=== PATIENT | female | born 2000 | race Caucasian/White ===

== ENCOUNTER 2024-05-20 12:38 | Emergency (ER) | payer OTHER, SELFPAY ==
[2024-05-20 12:43] VITALS: BP 150/94; PULSE 94; RESP 19; TEMP 36.6; O2SAT 99; BMI 65.1
--- NOTE | 2024-05-20 12:44 | ED_ITS ---
HPI - General Adult General Chief complaint: General Medical Stated complaint: Confused Not Eating Numbness in Mouth Related Data Allergies Allergy/AdvReac Type Severity Reaction Status Date / Time infliximab [Remicade] Allergy Unknown Unknown Verified 05/20/24 12:46 penicillin V Allergy Unknown Unknown Verified 05/20/24 12:46 [facility] Social History Social History Advance Directives: No Advance Directives Information Provided: Yes Do you have a plan to hurt others: No Plan Physical Exam ED Vital Signs: Vital Signs - 24 hr 05/20/24 12:43 05/20/24 16:55 Temperature 98 F 98 F Pulse Rate 94 82 Respiratory Rate 19 18 Blood Pressure 150/94 H 150/93 H Pulse Oximetry 99 98 Oxygen Delivery Method Room Air Room Air BMI result Body Mass Index 65.1 Course Course Course Narrative: This is a Rapid Medical Examination (RME) performed by Mela Truong PA-C in triage. Full HPI, ROS, assessment and treatment plan per primary provider in the Main ED. 05/20/24 1259 DANIELA Olivera Hx: 23 yo female here for eval of not feeling myself x6 days. reports syncopal episode 6 days ago. reports passing out for 2 hours. was evaluated at [facility] ED with reported negative work up. admits to numbness all over , sweating. PE/vitals: well appearing, exam nonfocal Plan: labs, ekg [facility] records requested Medical Decision Making Lab Data 05/20/24 13:09 05/20/24 13:09 Labs: Lab Results 05/20/24 Range/Units 13:09 WBC 8.9 (4.8-10.8) X10*3/uL RBC 4.49 (4.20-5.50) X10*6/uL Hgb 12.0 (12.0-16.0) g/dl Hct 36.1 L (37.0-47.0) % MCV 80.4 (80.0-98.0) fL MCH 26.7 L (27.0-33.0) pg MCHC 33.2 (31.0-35.0) g/dl RDW 13.9 (11.0-16.0) % Plt Count 325 (160-400) X10*3/uL MPV 11.9 (9.4-12.3) fL Immature Gran % (Auto) 0.2 (0.0-0.4) % Neut % (Auto) 73.5 H (45-73) % Lymph % (Auto) 15.9 L (20-40) % [place] % (Auto) 8.5 (2-11) % Eos % (Auto) 1.6 (0-4) % Baso % (Auto) 0.3 (0-2) % Lymph # (Auto) 1.4 (1.2-4.9) X10*3/uL [place] # (Auto) 0.8 (0.1-1.2) X10*3/uL Eos # (Auto) 0.1 (0.0-0.4) X10*3/uL Baso # (Auto) 0.0 (0.0-0.2) X10*3/uL Abs Immat Gran (auto) 0.02 (0.00-0.03) X10*3/uL Absolute Neuts (auto) 6.6 (2.0-8.3) x10*3/uL Absolute Nucleated RBC 0.000 (0.0-0.012) X10*3/uL Nucleated RBC % (auto) 0.0 (0.0-0.2) /100WBC Sodium 138 (135-145) mmol/L Potassium 4.0 (3.3-5.1) mmol/L Chloride 112 H (96-108) mmol/L Carbon Dioxide 20 L (22-29) mmol/L Anion Gap 10 L (12-20) BUN 8 L (9-16) mg/dL Creatinine 0.66 (0.5-1.4) mg/dL Estim Creat Clear Calc 198.1 Estimated GFR > 60 Random Glucose 105 (60-115) mg/dL Calcium 9.2 (8.4-10.2) mg/dL Magnesium 2.1 (1.6-2.6) mg/dL Total Bilirubin 0.3 (0.0-1.0) mg/dL AST 29 (5-31) U/L ALT 26 (0-31) U/L Alkaline Phosphatase 114 (39-117) U/L Total Protein 7.9 (6.5-8.0) g/dL Albumin 3.8 (3.5-5.0) g/dL TSH 0.47 (0.32-4.0) uIU/mL Beta HCG, Quant < 2 mIU/mL Discharge Plan Discharge Clinical Impression: Paresthesias Patient Disposition: Left W/O Completing Treatment Discharge Date/Time: 05/20/24 22:48
--- NOTE | 2024-05-20 12:46 | ECG_ITS ---
Test Reason : altered mental Blood Pressure : */* mmHG Vent. Rate : 88 BPM Atrial Rate : 88 BPM P-R Int : 140 ms QRS Dur : 84 ms QT Int : 364 ms P-R-T Axes : 31 0 20 degrees QTcB Int : 440 ms Normal sinus rhythm Possible Anterior infarct , age undetermined Abnormal ECG No previous ECGs available Referred By: Zara Truong Electronically Signed By: KAREL POON MD
[2024-05-20 13:15] LABS: Basophils Percent Auto 0.3 % (0-2); Eosinophils Absolute Auto 0.1 X10*3/uL (0.0-0.4); Eosinophils Percent Auto 1.6 % (0-4); Hematocrit 36.1 % (37.0-47.0); Imm Gran Abs Auto 0.02 X10*3/uL (0.00-0.03); Imm Gran Pct Auto 0.2 % (0.0-0.4); Lymphocytes Absolute Auto 1.4 X10*3/uL (1.2-4.9); Lymphocytes Percent Auto 15.9 % (20-40); MANUAL DIFF FLAG NO; Mean Corpuscular HGB Conc 33.2 g/dl (31.0-35.0); Mean Corpuscular Hemoglobin 26.7 pg (27.0-33.0); Mean Corpuscular Volume 80.4 fL (80.0-98.0); Mean Platelet Volume 11.9 fL (9.4-12.3); Monocytes Absolute Auto 0.8 X10*3/uL (0.1-1.2); Monocytes Percent Auto 8.5 % (2-11); Neutrophils Absolute Auto 6.6 x10*3/uL (2.0-8.3); Neutrophils Percent Auto 73.5 % (45-73); Platelet Count 325 X10*3/uL (160-400); Red Blood Count 4.49 X10*6/uL (4.20-5.50); Red Cell Distribution Width 13.9 % (11.0-16.0); White Blood Count 8.9 X10*3/uL (4.8-10.8)
[2024-05-20 13:35] LABS: Alanine Aminotransferase 26 U/L (0-31); Albumin Level 3.8 g/dL (3.5-5.0); Alkaline Phosphatase 114 U/L (39-117); Anion Gap 10 (12-20); Aspartate Amino Transferase 29 U/L (5-31); Bilirubin Total 0.3 mg/dL (0.0-1.0); Blood Urea Nitrogen 8 mg/dL (9-16); Calcium 9.2 mg/dL (8.4-10.2); Carbon Dioxide 20 mmol/L (22-29); Chloride 112 mmol/L (96-108); Creatinine Clr Calc Pharmacy 198.1; Estimated Glomerular Filt Rate > 60; Glucose Random 105 mg/dL (60-115); Magnesium 2.1 mg/dL (1.6-2.6); Sodium 138 mmol/L (135-145); Total Protein 7.9 g/dL (6.5-8.0)
[2024-05-20 13:49] LABS: HCG Quantitative < 2 mIU/mL; TSH reflex Free T4 0.47 uIU/mL (0.32-4.0)
--- OUTSIDE RECORDS SUMMARY | 2024-05-20 15:10 | XMS_ITS | Clinical Summary ---
Author Organization [facility] Address [address] [place] [address] Phone Care Team Providers Care Retail Pricing Coordinator Name Role Phone Physician, No Pcp Primary Care Provider Unavaila ble Allergies Active Allergy Reactions Criticality Noted Date Comments Infliximab High 01/23/2020 Penicillin Rash High 01/23/2020 Encounters Date Type Department Care Team Description 03/30/2024 5:19 PM EST - 03/30/2024 11:02 PM EST Emergency [facility] [address] [place] [id number] Discharge Disposition: Home or Self Care from Last 3 Months Medical History Medical History Date Comments LOLIS (juvenile idiopathic arthritis) (CMS/[facility] V24 , [facility] V28) Social History Tobacco Use Types Packs/Day Years Used Date Smoking Tobacco: Never Assessed Comments Unknown Sex and Gender Information Value Date Recorded Sex Assigned at Female 03/30/2024 10:49 PM EST Legal Sex Female 9:46 AM EST Gender Identity Female 03/30/2024 10:49 PM EST Sexual Orientation Not on file Obstetrics History Last Filed Vital Signs Vital Sign Reading Time Taken Comments Blood Pressure 135/88 03/30/2024 8:35 PM EST Pulse 83 03/30/2024 8:35 PM EST Temperature 37 ??C (98.6 ??F) 03/30/2024 8:35 PM EST Respiratory Rate 18 03/30/2024 5:36 PM EST Oxygen Saturation 98% 03/30/2024 8:35 PM EST Inhaled Oxygen Concentration - - Weight 160 kg (353 lb) 03/30/2024 5:36 PM EST Height 157.5 cm (5' 2 ) 03/30/2024 5:36 PM EST Body Mass Index 64.56 03/30/2024 5:36 PM EST Plan of Treatment Health Maintenance Due Date Last Done Comments Gonorrhea/Chlamydia Screening 2000 Pneumococcal Vaccine: Pediatrics (0 to 5 Years) and At-Risk Patients (6 to 64 Years) (1 of 1 - PPSV23) 2006 05/18/2001, 03/19/2001, 01/15/2001 Meningococcal B Vaccine (1 of 2 - Standard) 2016 Cervical Cancer Screening: Pap Smear 2021 Cholesterol Screening (Lipid Panel) 01/04/2022 Depression Screening 01/04/2022 HIV Screening 01/04/2022 Hepatitis C Screening 01/04/2022 Social Influencers of Health Screening 01/04/2022 COVID-19 Vaccine ( season) 2023 12/27/2022, 12/22/2020, 06/10/2020, Additional history exists DTaP,Tdap,and Td Vaccines (7 - Td or Tdap) 12/27/2032 12/27/2022, 01/08/2013, 01/26/2005, Additional history exists Hepatitis B Vaccines Completed 07/20/2001, 2000, 2000 HIB Vaccines Completed 03/08/2002, 05/07, 03/19/2001, Additional history exists IPV Vaccines Completed 01/26/2005, 05/07, 03/19/2001, Additional history exists MMR Vaccines Completed 01/26/2005, 03/08/2002 Meningococcal ACWY Vaccine Aged Out 01/08/2013 N o longer eligible based on patient's age to complete this topic HPV Vaccines Completed 01/20/2014, 09/07, 01/08/2013 Varicella Vaccines Completed 12/08/2014, 12/28/2001 Influenza Vaccine Completed 12/06/2023, , 12/22/2020, Additional history exists Hepatitis A Vaccines Aged Out No long er eligible based on patient's age to complete this topic RSV Immunization Patients Under 20 months Aged Out No longer eligible based on patient's age to complete this topic Procedures Procedure Name Priority Date/Time Associated Diagnosis Comments CBC WITH AUTO DIFFERENTIAL STAT 03/30/2024 6:53 PM EST BASIC METABOLIC PANEL STAT 03/30/2024 6:53 PM EST CBC AND DIFFERENTIAL STAT 03/30/2024 6:53 PM EST from Last 3 Months Results * (ABNORMAL) CBC auto differential (03/30/2024 6:53 PM EST) [facility] WBC 12.1(H) 4.8 - 10.8 K/mcL LAB HEMETOLOGY METHOD 03/30/2024 7:17 PM [facility] RBC 4.60 3.80 - 4.80 M/mcL LAB HEMETOLOGY METHOD 03/30/2024 7:17 PM [facility] Hemoglobin 12.3 11.5 - 16.0 g/dL LAB HEMETOLOGY METHOD 03/30/2024 7:17 PM [facility] Hematocrit 38.7 35.0 - 47.0 % LAB HEMETOLOGY METHOD 03/30/2024 7:17 PM [facility] MCV 83.6 79.0 - 98.0 FL LAB HEMETOLOGY METHOD 03/30/2024 7:17 PM [facility] MCH 26.6(L) 27.0 - 32.0 pcg LAB HEMETOLOGY METHOD 03/30/2024 7:17 PM [facility] MCHC 31.8(L) 32.0 - 37.0 g/dL LAB HEMETOLOGY METHOD 03/30/2024 7:17 PM [facility] RDW 13.5 11.0 - 15.0 % LAB HEMETOLOGY METHOD 03/30/2024 7:17 PM [facility] Platelets 300 130 - 400 K/mcL LAB HEMETOLOGY METHOD 03/30/2024 7:17 PM [facility] MPV 12.1(H) 7.0 - 11.0 FL LAB HEMETOLOGY METHOD 03/30/2024 7:17 PM [facility] NRBC 0.0 <1.0 % LAB HEMETOLOGY METHOD 03/30/2024 7:17 PM [facility] NRBC Absolute 0.00 <0.10 K/mcL LAB HEMETOLOGY METHOD 03/30/2024 7:17 PM [facility] Neutrophils Relative 77.9 % LAB HEMETOLOGY METHOD 03/30/2024 7:17 PM [facility] Lymphocytes Relative 13.5 % LAB HEMETOLOGY METHOD 03/30/2024 7:17 PM [facility] Monocytes Relative 6.8 % LAB HEMETOLOGY METHOD 03/30/2024 7:17 PM [facility] Eosinophils Relative 1.1 % LAB HEMETOLOGY METHOD 03/30/2024 7:17 PM [facility] Basophils Relative 0.4 % LAB HEMETOLOGY METHOD 03/30/2024 7:17 PM [facility] Immature Granulocytes Relative 0.3 % LAB HEMETOLOGY METHOD 03/30/2024 7:17 PM [facility] Neutrophils Absolute 9.44(H) 1.50 - 7.00 K/mcL LAB HEMETOLOGY METHOD 03/30/2024 7:17 PM [facility] Lymphocytes Absolute 1.63 1.00 - 5.00 K/mcL LAB HEMETOLOGY METHOD 03/30/2024 7:17 PM [facility] Monocytes Absolute 0.82 0.20 - 1.00 K/mcL LAB HEMETOLOGY METHOD 03/30/2024 7:17 PM [facility] Eosinophils Absolute 0.13 0.00 - 0.50 K/mcL LAB HEMETOLOGY METHOD 03/30/2024 7:17 PM [facility] Basophils Absolute 0.05 0.00 - 0.20 K/mcL LAB HEMETOLOGY METHOD 03/30/2024 7:17 PM [facility] Immature Granulocytes Absolute 0.04(H) 0.00 - 0.03 K/mcL LAB HEMETOLOGY METHOD 03/30/2024 7:17 PM [facility] Blood Venous blood specimen / Unknown Venipuncture / Unknown 03/30/2024 6:53 PM EST 03/30/2024 7:02 PM EST us Emory Gao DO LAB BLOOD ORDERABLES Final Res ult [facility] [address] [place] [address], [place] [phone] * Basic metabolic panel (03/30/2024 6:53 PM EST) Sodium 138 133 - 145 mmol/L LAB CHEMISTRY METHOD 03/30/2024 7:26 PM [facility] Potassium 4.1 3.5 - 5.5 mmol/L LAB CHEMISTRY METHOD 03/30/2024 7:26 PM [facility] Chloride 110 96 - 110 mmol/L LAB CHEMISTRY METHOD 03/30/2024 7:26 PM [facility] CO2 22 21 - 32 mmol/L LAB CHEMISTRY METHOD 03/30/2024 7:26 PM [facility] Anion Gap 6 3 - 11 LAB CHEMISTRY METHOD 03/30/2024 7:26 PM [facility] Glucose 94 70 - 100 mg/dL LAB CHEMISTRY METHOD 03/30/2024 7:26 PM [facility] BUN 13 5 - 25 mg/dL LAB CHEMISTRY METHOD 03/30/2024 7:26 PM [facility] Creatinine 0.58 0.50 - 1.10 mg/dL LAB CHEMISTRY METHOD 03/30/2024 7:26 PM [facility] eGFR 131 >=60 mL/min/1. 73m2 LAB CHEMISTRY METHOD 03/30/2024 7:26 PM EST [facility] Comment:Calculation based on the??Chronic Kidney Disease Epidemiology Collaboration (CKD-EPI) equation refit??without adjustment for race. BUN/Creatinine Ratio 22.4 LAB CHEMISTRY METHOD 03/30/2024 7:26 PM EST [facility] Calcium 9.1 8.5 - 10.5 mg/dL LAB CHEMISTRY METHOD 03/30/2024 7:26 PM EST [facility] Blood Venous blood specimen / Unknown Venipuncture / Unknown 03/30/2024 6:53 PM EST 03/30/2024 7:02 PM EST us Emory Gao DO LAB BLOOD ORDERABLES Final Res ult [facility] [address] [place] [address], from Last 3 Months Insurance [facility] MEDICAID ADVANTAGE Care Teams Retail Pricing Coordinator Relationship Specialty Start Date End Date Physician, No Pcp PCP - General 03/30/24
--- OUTSIDE RECORDS SUMMARY | 2024-05-20 15:10 | XMS_ITS | Data Portability ---
Author Organization [place] - [facility], Allergy Address [address] [place] [id number] Care Team Providers Care Building Components Designer Name Role Phone VELMAWILKYMBERLYKODY Primary Care Provider Assessment Encounter Date Assessment Date Assessment LastModified by Organization Details LastModified Time 12/07/2023 12/07/2023 23 year old female presents to the office for evaluation of her hearing. She has moderate to severe conductive hearing loss bilaterally with flat tympanograms. Reviewed with the patient that she appears to have mucoid effusions bilaterally. She started Augmentin four days ago. I have recommended that she complete the antibiotic and I have also prescribed her Flonase. We discussed that it is considered normal to take up to three months for the effusions to clear. I will see her back in 6-8 weeks with hearing test first. May consider myringotomy or tubes if persists Patient was seen and examined by Dr. Mendoza. Jessica Perdue PA-C functioned as a scribe for this visit. [email or web address] Not available 12/07/2023 12:43:18 01/26/2024 01/26/2024 23 year old female presents for follow up of her bilateral mucoid effusions which have resolved. TMs and intact and middle ear spaces appear well aerated bilaterally. Audiometric testing reveals normal hearing and type A tympanograms bilaterally. Patient was provided with a copy of her audiograms. She will follow up on an as needed basis. [email or web address] Not available 01/26/2024 11:53:01 Plan of Treatment Reminders Order Date Submit Date Provider Last Modified By Organization Details Last Modified Time Details Appointments None recorded. Lab None recorded. Referral None recorded. Procedures None recorded. Surgeries None recorded. Imaging None recorded. Medication Orders Flonase Allergy Relief 50 mcg/actua tion nasal spray,omayra pension 024 024 [id number], [address], [place], [phone], 4 12:04:41 Patient TargetsNo targets recorded. Patient InstructionsNo instructions recorded. Reason for Referral None Reported. Results Created Date Observation Date Name Description Value Unit Range Abnormal Flag Note LastModifiedBy Organization Detail LastModifiedTime 12/11/19 24 audio gram No observ ation record ed. BARCODE Not Available 2023 14:30:13 01/26/20 24 audio gram No observ ation record ed. BARCODE Not Available 2023 13:43:42 Result Notes None recorded. Problems Name Problem SNOMED Code Status Onset Date Resolution Date Notes Provider Name and Address Organization Details Recorded Time Gastroeso phageal reflux disease without esophagit is 258917457 Active 2021 Gastro-es ophageal reflux disease without esophagit is; Note: Date Diagnosed : 2 2:49 PM (K21.9) Not Available [facility] 4 02:57:15 Abnormal auditory perceptio n 48625066 Active 2015 Other abnormal auditory perceptio ns, bilateral ; Note: Date Diagnosed : 03/05/2015 2:37 PM (H93.293) Not Available [facility] 4 02:57:14 Conductiv e hearing loss, bilateral 921031495 Active 2023 TONI EDWARDS, DANIELLE [address] [facility],[place] [address], [place], [phone] , [facility] - [facility] 4 11:48:53 Acute mucoid otitis media 62208718 Active 2023 JESSICA PERDUE PA-C [address] [facility],[place] [address], [place], [address] , [facility] - [facility] 4 12:31:43 Middle ear effusion 5673408658 Active 2023 JESSICA PERDUE PA-C [address] [facility],[place] [address], [place], [address] , [place] - [facility] 4 12:32:05 Dysfuncti on of eustachia n tube 09675727 Active 2023 ALL OLIVARES [place], CCC-A [address] [facility],[place] [address], [place], [address] , [place] - [facility] 4 11:31:02 Problem Notes None recorded. Procedures Surgical History Date Name Laterality Status Provider Name and Address Organization Details Recorded Time 01/26/2024 Comp Audio with Tymps (29683 & 22609) completed ALL OLIVARES [place], [facility] [address] [facility],[place] [address], [place], [phone], [facility] - [facility] 01/26/2024 11:30:10 12/07/2023 Comp Audio with Tymps (28003 & 00836) completed TONI EDWARDS, [facility] [address] [facility],[place] [address], [place], [phone], [facility] 12/07/2023 11:48:42 Imaging Results Imaging Date Name Status LastModified by Organiz ation Details LastModified Time 12/11/2023 audiogram completed BARCODE Information no t available 12/11/2023 14:30:13 01/26/2024 audiogram completed BARCODE Information no t available 01/26/2024 13:43:42 Procedure Notes None recorded. Medical Equipment None Reported. Allergies Allergen ID Allergen Name Allergen Category Reaction Reaction Severity Criticality Documentation Date Start Date Code Code System Note Provider Name and Address Organization Details Recorded Time 750362 penicilli n V potassium medicatio n other Not available Not available 06/20/2023 5 RxNorm React ion: unkno wn, unspe cifie d;; Not Available [facility] 01:08:32 Medications Name Sig Start Date Stop Date Status Note LastModified by Organization Details LastModified Time triple antibioti c with pain relief maximum strength 1 % oint active Not Available Not Available Not Available meloxicam 15 mg tablet TAKE 1 TABLET BY MOUTH DAILY WITH FOOD active Not Available Not Available No t Available methotrex ate sodium 25 mg/mL injection solution 11/30 completed Medicati on ID: [id number] D uration Value: 28 Brand Name: methotre xate sodium S end Method: E-Prescr ibed Sub s Allowed: subs OK Medic ationGen ericName : methotre xate sodium Not Available Not Available Not Available tramadol 50 mg tablet 11/30 completed Medicati on ID: [id number] D uration Value: 12 Brand Name: tramadol Send Method: E-Prescr ibed Sub s Allowed: subs OK Medic ationGen ericName : tramadol Not Available Not Available Not Available prednisol one acetate 1 % eye drops,omayra pension SHAKE LIQUID AND INSTILL 1 DROP IN LEFT EYE THREE TIMES DAILY active Not Available Not Available No t Available omeprazol e 20 mg capsule,d elayed release active Medicati on ID: [id number] B rand Name: omeprazo le Send Method: E-Prescr ibed Sub s Allowed: subs OK Medic ationGen ericName : omeprazo le Not Available Not Available Not Available cephalexi n 500 mg tablet TAKE 1 TABLET BY MOUTH TWICE DAILY FOR 10 DAYS active Not Available Not Available No t Available dorzolami de 22.3 mg-timolo l 6.8 mg/mL eye drops INSTILL 1 DROP IN THE LEFT EYE TWICE DAILY active Not Available Not Available No t Available epinephri ne 0.3 mg/0.3 mL injection , auto-inje ctor INJECT 1 PEN IN THE MUSCLE ONE TIME DIRECTED active Not Available Not Available No t Available ibuprofen 600 mg tablet TAKE 1 TABLET BY MOUTH EVERY 6 HOURS NEEDED FOR MILD PAIN active Not Available Not Available No t Available timolol maleate 0.5 % eye drops 11/30 completed Medicati on ID: [id number] D uration Value: 30 Brand Name: timolol maleate Send Method: E-Prescr ibed Sub s Allowed: subs OK Medic ationGen ericName : timolol maleate Not Available Not Available Not Available atropine 1 % eye drops PLACE 1 DROP INTO YOUR LEFT EYE TWICE DAILY active Not Available Not Available No t Available fluticaso ne propionat e 50 mcg/actua tion nasal spray,omayra pension SHAKE LIQUID AND USE 2 SPRAYS IN EACH NOSTRIL TWICE DAILY active Not Available Not Available No t Available amoxicill in 875 mg-potass ium clavulana te 125 mg tablet TAKE 1 TABLET BY MOUTH TWICE DAILY active Not Available Not Available No t Available Ventolin HFA 90 mcg/actua tion aerosol inhaler INHALE 2 PUFFS EVERY 6 HOURS NEEDED FOR COUGH active Not Available Not Available No t Available Pulmicort 11/30 completed Medicati on ID: [id number] D uration Value: 30 Brand Name: pulmicor t Send Method: E-Prescr ibed Sub s Allowed: subs OK Speci al Instruct ion: USE 2 PUFFS EVERY DAY Medi cationGe nericNam e: pulmicor t Not Available Not Available Not Available omeprazol e 40 mg-sodium bicarbona te 1,680 mg oral packet Take 1 packet dissolve d in water once a day 2021 active Medicati on ID: [id number] D uration Value: 30 Brand Name: omeprazo ayush-sodiu irving bicarbon ate Send Method: E-Prescr ibed Sub s Allowed: subs OK Medic ationGen ericName : omeprazo le-sodiu m bicarbon ate Not Available Not Available Not Available Combigan 0.2 %-0.5 % eye drops INSTILL 1 DROP IN LEFT EYE THREE TIMES DAILY active Not Available Not Available No t Available Durezol 0.05 % eye drops 11/30 completed Medicati on ID: [id number] D uration Value: 25 Brand Name: Durezol Send Method: E-Prescr ibed Sub s Allowed: subs OK Medic ationGen ericName : Durezol Not Available Not Available Not Available Actemra 80 mg/4 mL (20 mg/mL) intraveno us solution active Medicati on ID: [id number] B rand Name: Actemra Send Method: E-Prescr ibed Sub s Allowed: subs OK Medic ationGen ericName : Actemra Not Available Not Available Not Available Estarylla 0.25 mg-0.035 mg tablet active Not Available Not Available No t Available Triple Antibioti c-Pain Relief 3.5 mg-500 unit-10,0 00 unit/gram ointmnt APPLY TO SKIN EVERY DAY NEEDED FOR WOUND CARE active Not Available Not Available No t Available Vitals Date Recorded Body height Body mass index (BMI) Body weight Provider Name and Address Organization Details Last Updated DateTime 12/07/2023 157.48 cm 62.7 kg/m2 830350.18 g Dixie Han [place] - [facility] 12/07/2023 11:20:05 Social History None recorded. Functional Status None recorded. Mental Status None recorded. Family History Nothing Reported. Medical History Condition Response Arthritis Y GERD/Reflux Y Gynecological HistoryNo gynecological history recorded. Obstetrics History GPAL:G 0 P 0 0 0 0 Past Encounters Encounter ID Performer Location Encounter Start Date Encounter Closed Date Diagnosis/Indication Diagnosis SNOMED-CT Code Diagnosis ICD10 Code Diagnosis Note [id number] ARTI CASTLE MD [facility] [address] [phone] 12/07/2023 11:09:50 12/07/2023 12:06:30 Conductive hearing loss, bilateral 428205936 H90.0 Audiologic al evaluation results: Right ear: {{Normal N ormal through 2 kHz Mild M oderate Mo derately-s evere* Sev ere Profou nd}} {{hearing sloping to a mild slopi ng to a moderate s loping to moderately severe slo ping to severe slo ping to profound f lat high frequency low frequency mid frequency cookie bite bergman curve cond uctive hearing loss#}} {{with* se nsorineura l hearing loss with condu ctive hearing loss with mixed hearing loss with}} {{excellen t* good fa ir poor no measurable }} word recognitio n. Left ear: {{Normal N ormal through 2 kHz Mild M oderate Mo derately-s evere* Sev ere Profou nd}} {{hearing sloping to a mild slopi ng to a moderate s loping to moderately severe slo ping to severe slo ping to profound f lat high frequency low frequency mid frequency cookie bite bergman curve cond uctive hearing loss#}} {{with* se nsorineura l hearing loss with condu ctive hearing loss with mixed hearing loss with}} {{excellen t* good fa ir poor no measurable }} word recognitio n. Tympanomet ry: Right Ear:{{Type A Type As Type Ad Type C* Type C, shallow & rounded Ty pe B Type B with large volume Cou ld not maintain a hermetic seal}} Left Ear:{{Type A Type As Type Ad Type C Type C, shallow & rounded Ty pe B* Type B with large volume Cou ld not maintain a hermetic seal}} Middle ear effusion 1004 [id number] H74.8X9 [id number] ARTI CASTLE MD [facility] [address] [place] [address] 01/26/2024 10:49:15 01/26/2024 15:32:13 Dysfunction of eustachian tube 97420446 H69.93 Audiologic al evaluation results: Right ear: {{Normal* Normal through 2 kHz Mild M oderate Mo derately-s evere Anisha re Profoun d}} {{hearing* hearing. sloping to a mild slopi ng to a moderate s loping to moderately severe slo ping to severe slo ping to profound f lat high frequency low frequency mid frequency cookie bite bergman curve}} {{with* se nsorineura l hearing loss with condu ctive hearing loss with mixed hearing loss with}} {{excellen t* good fa ir poor no measurable }} word recognitio n. Left ear: {{Normal* Normal through 2 kHz Mild M oderate Mo derately-s evere Anisha re Profoun d}} {{hearing* hearing. sloping to a mild slopi ng to a moderate s loping to moderately severe slo ping to severe slo ping to profound f lat high frequency low frequency mid frequency cookie bite bergman curve}} {{with* se nsorineura l hearing loss with condu ctive hearing loss with mixed hearing loss with}} {{excellen t* good fa ir poor no measurable }} word recognitio n. Tympanomet ry: Right Ear:{{Type A* Type As Type Ad Type C Type C, shallow & rounded Ty pe B Type B with large volume Cou ld not maintain a hermetic seal}} Left Ear:{{Type A* Type As Type Ad Type C Type C, shallow & rounded Ty pe B Type B with large volume Cou ld not maintain a hermetic seal}} Health Concerns Section Related Observation LastModified by Organization David dickey LastModified Time None Recorded Concern Status LastModified by Organization Details LastModified Time None Recorded Advance Directives Directive None Recorded Payers Encounter Date Sequence Insurance Name Policy Number Policy Bojorquez Covered Member ID Bojorquez Member ID Guarantor Name 12/07/2023 1 [facility] [id number] Nancy Coleman [id number] Nancy Blunt 01/26/2024 1 [facility] - [facility] (MEDICAID HMO) Nancy Blunt [id number] Nancy Blunt Notes Date Note Type Note Provider Name and Address Organization Details Recorded Time 12/07/2023 text/html 23 year old julissa peacock presents to the office for evaluation of her hearing. She has felt like her ears have been blocked for about 3 weeks. She was seen at urgent care and started Augmentin 4 days ago. She reports that she had tubes as a child. She has sleep apnea and uses CPAP. 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 ARTI MENDOZA MD [address] [place] [address], [phone], [facility] - [facility] 12/07/2023 12:43:51 01/26/2024 text/html 23 year old julissa peacock presents for follow up of her bilateral mucoid effusions. She feels like her hearing returned to normal two weeks ago. She has been using Flonase. ARTI MENDOZA MD [address] [place] [address],[address], [address], [facility] 01/26/2024 12:50:31 OBGyn Episode No OBEpisode recorded.
[2024-05-20 16:55] VITALS: BP 150/93; PULSE 82; RESP 18; TEMP 36.6; O2SAT 98
--- NOTE | 2024-05-20 22:47 | PC.NURSE ---
pt called in waiting room with no answer multiple times
== END 2024-05-20 22:48 | disposition left against medical advice (07) ==
PROVIDERS: Physician Assistant Medical; Emergency Provider Emergency Medicine
DX: R20.2 Paresthesia of skin (principal); Z79.899 Other long term (current) drug therapy
CPT/HCPCS: 36415; 80053; 83735; 84443; 84702; 85025; 93005; 99281; 99283

== ENCOUNTER → 2024-05-20 12:46 | Outpatient (BNV) | payer OTHER, SELFPAY | PROVIDERS: Visit Provider Internal Medicine Cardiovascular Disease | DX: R94.31 Abnormal electrocardiogram [ECG] [EKG] (principal); R41.82 Altered mental status, unspecified | CPT/HCPCS: 93010 ==